=== PATIENT | female | born 1990 | race Caucasian/White ===

== ENCOUNTER 2021-11-30 17:11 | Day surgery (SDC) | payer BC ==
[2021-11-30 18:32] VITALS: BMI 26.2
[2021-11-30 18:50] LABS: Fetal Membranes Rupture No Membranes Rupture (No Rupture)
[2021-11-30] MEDS ORDERED: hydrALAZINE 20 MG/ML VIAL SLOW IVP PRN (19:15)
== END 2021-11-30 20:05 | disposition home or self-care (01) ==
LOC: CSHLD/OP 17:11
PROVIDERS: ATTEND Obstetrics & Gynecology
DX: O99.891 Other specified diseases and conditions complicating pregnancy (principal); N89.8 Other specified noninflammatory disorders of vagina; Z3A.36 36 weeks gestation of pregnancy; Z88.5 Allergy status to narcotic agent
CPT/HCPCS: 84112; 87480; 87510; 87660; 99285

== ENCOUNTER 2021-12-05 01:27 | Day surgery (SDC) | payer BC ==
[2021-12-05 01:57] VITALS: BMI 26.6
[2021-12-05] MEDS ORDERED: hydrALAZINE 20 MG/ML VIAL SLOW IVP PRN (02:49)
[2021-12-05] MEDS ORDERED: Promethazine HCl 25 MG/ML VIAL IM PRN (02:53)
[2021-12-05] MEDS ORDERED: Lactated Ringer's 1,000 ML IV SCH (03:00)
[2021-12-05] MEDS ORDERED: Fentanyl 100 MCG/2 ML VIAL SLOW IVP PRN (04:19)
== END 2021-12-05 10:37 | disposition home health service (06) ==
LOC: CSHLD/OP 01:27
PROVIDERS: ATTEND Obstetrics & Gynecology
DX: O47.03 False labor before 37 completed weeks of gestation, third trimester (principal); O98.513 Other viral diseases complicating pregnancy, third trimester; B00.9 Herpesviral infection, unspecified; Z3A.36 36 weeks gestation of pregnancy; Z79.899 Other long term (current) drug therapy; Z88.5 Allergy status to narcotic agent
CPT/HCPCS: J2550; J3010

== ENCOUNTER 2021-12-06 20:00 | Inpatient (IN) | payer BC, SELFPAY ==
[2021-12-06 20:38] VITALS: BMI 26.6
[2021-12-06] MEDS ORDERED: hydrALAZINE 20 MG/ML VIAL SLOW IVP PRN (20:56)
[2021-12-06] MEDS ORDERED: Promethazine HCl 25 MG/ML VIAL IM SCH (21:00)
[2021-12-06] MEDS: Fentanyl 100 MCG/2 ML VIAL SLOW IVP SCH ×4 (21:18→22:52)
[2021-12-07] MEDS: Fentanyl 100 MCG/2 ML VIAL SLOW IVP SCH ×2 (00:10→20:53)
[2021-12-07] MEDS ORDERED: Promethazine HCl 25 MG/ML VIAL IM PRN ×4 (00:57→20:59)
[2021-12-07] MEDS ORDERED: Zolpidem Tartrate 5 MG TAB PO PRN ×3 (00:57→20:59)
[2021-12-07] MEDS ORDERED: Ondansetron PF 4 MG/2 ML Vial IVP PRN ×4 (00:57→20:59)
[2021-12-07] MEDS ORDERED: Lidocaine 1% (PF) 30 ML VIAL SC PRN (00:57)
[2021-12-07] MEDS ORDERED: hydrALAZINE 20 MG/ML VIAL SLOW IVP PRN ×2 (00:57→20:59)
[2021-12-07 01:42] LABS: Hemoglobin 11.7 g/dL (12.0-15.5); Mean Corpuscular HGB CONC 31.7 g/dL (32.0-36.0); Mean Corpuscular Hemoglobin 29.3 pg (27.0-33.0); Mean Corpuscular Volume 92.5 fl (81.6-98.3); Mean Platelet Volume 10.2 fl (7.4-10.4); Platelet Count 459 10x3/uL (150-450); RBC Distribution Width 13.3 % (11.5-14.5); Red Blood Cell (RBC) Count 3.99 10x6/uL (3.90-5.03); White Blood Cell (WBC) Count 14.8 10x3/uL (3.5-10.5)
[2021-12-07] MEDS ORDERED: Lactated Ringer's 1,000 ML IV SCH (02:00)
[2021-12-07] MEDS ORDERED: NS w/ Oxytocin 30 units 500 ML IV SCH (02:00)
[2021-12-07] MEDS ORDERED: Fentanyl 2 mcg/Bup 0.1% Cadd 100 ML ONE ×2 (02:08→08:42)
[2021-12-07 02:10] LABS: Syphilis Antibody Nonreactive (Nonreactive); Syphilis Antibody Index 0.04 S/CO (<1.00 Non-Reactive)
[2021-12-07 02:16] LABS: Hep B Surf Ag Non-Reactive S/CO (NonReactive)
[2021-12-07] MEDS ORDERED: Hydrocerin (Eucerin) Cream 120 gm Jar TOP PRN (02:23)
[2021-12-07] MEDS ORDERED: Lactated Ringer's 500 ML IV PRN (02:23)
[2021-12-07] MEDS ORDERED: Naloxone HCl 0.4 mg/ml Vial IVP PRN ×2 (02:23)
[2021-12-07] MEDS ORDERED: ePHEDrine Sulfate 50 MG/10 ML VIAL SLOW IVP PRN (02:23)
[2021-12-07] MEDS ORDERED: diphenhydrAMINE 50 MG/ML VIAL IVP PRN ×2 (02:23→16:01)
[2021-12-07] MEDS ORDERED: Communication Order-Pharmacy FS SCH (02:30)
[2021-12-07] MEDS ORDERED: Fentanyl 2 mcg/Bupivacaine 0.1% Cassette 100 ML EPIDURAL SCH (02:30)
[2021-12-07 02:45] LABS: SARS-CoV-2 NAA Rapid Test Not Detected (NotDetected)
[2021-12-07] MEDS ORDERED: Bupivacaine 0.25% HCL 30 ML VIAL ONE ×2 (06:00→08:00)
[2021-12-07] MEDS ORDERED: ePHEDrine Sulfate 50 MG/10 ML VIAL ONE (08:00)
[2021-12-07] MEDS ORDERED: NS w/ Oxytocin 30 units 500 ML ONE (08:04)
[2021-12-07] MEDS ORDERED: Lidocaine 2% PF 100 mg/5 ml Syringe ONE ×3 (12:08→13:27)
[2021-12-07] MEDS ORDERED: Vecuronium 10 MG VIAL ONE (13:25)
[2021-12-07] MEDS ORDERED: Bicitra 30 ML UDCUP PO PRN (14:29)
[2021-12-07] MEDS ORDERED: Famotidine/PF 20 mg/2ml Vial SLOW IVP PRN (14:29)
[2021-12-07] MEDS ORDERED: ceFAZolin 2 GM/Dextrose 50 ML 2 GM in Premix Bag 1 BAG IVPB SCH (14:30)
[2021-12-07] MEDS ORDERED: Azithromycin 500 MG in Sodium Chloride 0.9% 250 ML 250 ML IVPB SCH (14:30)
[2021-12-07] MEDS ORDERED: PROPOFOL 20 ML ONE (14:38)
[2021-12-07] MEDS ORDERED: Oxytocin 10 UNITS/ML VIAL ONE ×2 (14:38→15:29)
[2021-12-07] MEDS ORDERED: Dexamethasone 4 mg/ml Vial ONE (14:38)
[2021-12-07] MEDS ORDERED: Phenylephrine 10 MG/ML VIAL ONE (14:38)
[2021-12-07] MEDS ORDERED: Succinylcholine 200 MG/10 ml SYRINGE FS ONE (14:38)
[2021-12-07] MEDS ORDERED: Ondansetron PF 4 MG/2 ML Vial ONE (14:38)
[2021-12-07] MEDS ORDERED: PHENYLEPHRINE-NS 100 MCG/ML 10 ML SYRINGE ONE (14:38)
[2021-12-07] MEDS ORDERED: Fentanyl 100 MCG/2 ML VIAL ONE ×2 (14:38→15:28)
[2021-12-07 15:18] LABS: RapidComm Collect By NURSE
[2021-12-07 15:19] LABS: RapidComm Collect By NURSE; pH (Cord, venous) 7.336 (7.250-7.350)
[2021-12-07] MEDS ORDERED: Midazolam HCl 2 mg/2 ml Vial ONE (15:28)
[2021-12-07] MEDS ORDERED: diphenhydrAMINE 25 MG CAP PO PRN ×2 (16:01→20:59)
[2021-12-07] MEDS ORDERED: Ondansetron HCl/PF 4 MG/2 ML Vial IVP PRN (16:01)
[2021-12-07] MEDS ORDERED: diphenhydrAMINE 50 MG/ML VIAL IM PRN (16:01)
[2021-12-07] MEDS ORDERED: Meperidine HCl/PF 25 MG/ML VIAL SLOW IVP PRN (16:01)
[2021-12-07] MEDS ORDERED: Naloxone HCl 0.4 mg/ml Vial IV PRN (16:01)
[2021-12-07] MEDS ORDERED: fentaNYL Citrate/PF 2,000 MCG in Sodium Chloride 0.9% 60 ML IV PRN (16:01)
[2021-12-07] MEDS ORDERED: Communication Order-Pharmacy FS PRN (16:15)
[2021-12-07] MEDS ORDERED: Sterile Water 10 ML ONE (16:59)
[2021-12-07] MEDS ORDERED: Azithromycin 500 MG VIAL ONE (17:00)
[2021-12-07] MEDS: fentaNYL Citrate/PF 1,000 MCG in Sodium Chloride 0.9% 30 ML IV PRN (17:29)
[2021-12-07] MEDS: Lactated Ringer's 1,000 ML IV SCH (20:53)
[2021-12-07] MEDS ORDERED: Boostrix 0.5 ML (Tdap) VIAL IM ONE (20:59)
[2021-12-07] MEDS ORDERED: Lanolin Ointment 7 GM TUBE TOP PRN (20:59)
[2021-12-08 06:50] LABS: Hemoglobin 8.4 g/dL (12.0-15.5); Mean Corpuscular HGB CONC 32.1 g/dL (32.0-36.0); Mean Corpuscular Hemoglobin 29.6 pg (27.0-33.0); Mean Corpuscular Volume 92.3 fl (81.6-98.3); Mean Platelet Volume 10.3 fl (7.4-10.4); Platelet Count 343 10x3/uL (150-450); RBC Distribution Width 13.2 % (11.5-14.5); Red Blood Cell (RBC) Count 2.84 10x6/uL (3.90-5.03); White Blood Cell (WBC) Count 20.5 10x3/uL (3.5-10.5)
[2021-12-08] MEDS: fentaNYL Citrate/PF 1,000 MCG in Sodium Chloride 0.9% 30 ML IV PRN (08:27)
[2021-12-08] MEDS: Ibuprofen 800 MG TAB PO PRN ×2 (09:49→19:09)
[2021-12-08] MEDS: Prenatal Vitamin 1 TAB PO SCH (09:49)
[2021-12-08] MEDS: Ferrous Sulfate 325 MG TAB PO SCH (14:27)
[2021-12-08] MEDS: Simethicone Chewable 80 MG TAB PO PRN (19:09)
[2021-12-09] MEDS: Ferrous Sulfate 325 MG TAB PO SCH ×2 (06:01→13:19)
[2021-12-09] MEDS: Prenatal Vitamin 1 TAB PO SCH (08:57)
[2021-12-09] MEDS: Ibuprofen 800 MG TAB PO PRN (11:42)
[2021-12-09] MEDS ORDERED: Fentanyl 100 MCG/2 ML VIAL SLOW IVP PRN (15:24)
[2021-12-09] MEDS: Ketorolac Tromethamine 30 MG/ML VIAL IVP PRN (18:07)
[2021-12-09] MEDS: Simethicone Chewable 80 MG TAB PO PRN (18:07)
[2021-12-10] MEDS: Ferrous Sulfate 325 MG TAB PO SCH (00:08)
[2021-12-10] MEDS: Ketorolac Tromethamine 30 MG/ML VIAL IVP PRN (01:13)
[2021-12-10] MEDS ORDERED: Ibuprofen 800 MG TAB PO PRN (07:57)
[2021-12-10 08:06] VITALS: BP 115/65; TEMP 98.3
[2021-12-10] MEDS: Prenatal Vitamin 1 TAB PO SCH (08:26)
== END 2021-12-10 13:40 | disposition home or self-care (01) | DRG 787 ==
LOC: CSHLD/OP 20:00 → CSHLD 12-07 01:06 → CSHPP 12-07 20:46
PROVIDERS: ADMIT Obstetrics & Gynecology; ATTEND Obstetrics & Gynecology
PROC: 10D00Z1 Extraction of Products of Conception, Low, Open Approach (ICD-10-PCS; principal; 2021-12-07)
DX: O98.32 Other infections with a predominantly sexual mode of transmission complicating childbirth (principal); D62 Acute posthemorrhagic anemia; O77.0 Labor and delivery complicated by meconium in amniotic fluid; O64.0XX0 Obstructed labor due to incomplete rotation of fetal head, not applicable or unspecified; O65.8 Obstructed labor due to other maternal pelvic abnormalities; Z3A.37 37 weeks gestation of pregnancy; Z37.0 Single live birth; O76 Abnormality in fetal heart rate and rhythm complicating labor and delivery; O90.81 Anemia of the puerperium; O32.4XX0 Maternal care for high head at term, not applicable or unspecified; A60.00 Herpesviral infection of urogenital system, unspecified; Z20.822 Contact with and (suspected) exposure to COVID-19; Z88.5 Allergy status to narcotic agent; O75.81 Maternal exhaustion complicating labor and delivery
CPT/HCPCS: 36415; 51702; 82805; 85027; 86780; 86850; 86900; 86901; 87340; 99285; J0456; J1100; J1885; J2001; J2250; J2370; J2405; J2550; J2590; J2704; J3010; J3490; S0020; U0002

== ENCOUNTER 2022-02-18 10:08 | Day surgery (SDC) | payer BC ==
[2022-02-15 15:44] VITALS: BMI 23.1
[2022-02-16 11:48] LABS: Hemoglobin 11.3 g/dL (12.0-15.5); Mean Corpuscular HGB CONC 30.4 g/dL (32.0-36.0); Mean Corpuscular Hemoglobin 25.6 pg (27.0-33.0); Mean Corpuscular Volume 84.2 fl (81.6-98.3); Mean Platelet Volume 9.5 fl (7.4-10.4); Platelet Count 636 10x3/uL (150-450); RBC Distribution Width 14.6 % (11.5-14.5); Red Blood Cell (RBC) Count 4.42 10x6/uL (3.90-5.03); White Blood Cell (WBC) Count 5.1 10x3/uL (3.5-10.5)
[2022-02-16 12:02] LABS: BHCG - Serum Negative (NEGATIVE); Pregs Control Background? CLEAR/WHITE (CLR/WHITE); Pregs Control Bar Appear? YES (CONTROL BAR)
[2022-02-16 17:41] LABS: SARS-CoV-2 PCR by NAA Not Detected (NotDetected)
[2022-02-18] MEDS ORDERED: Gabapentin 300 MG CAP ONE (10:23)
[2022-02-18] MEDS ORDERED: Famotidine/PF 20 mg/2ml Vial ONE (10:24)
[2022-02-18] MEDS ORDERED: CeleCOXIB 100 MG CAP ONE (10:24)
[2022-02-18] MEDS ORDERED: Lidocaine 1% MPF 2 ML VIAL ONE (10:24)
[2022-02-18] MEDS ORDERED: Ondansetron PF 4 MG/2 ML Vial ONE (11:47)
[2022-02-18] MEDS ORDERED: Fentanyl 100 MCG/2 ML VIAL ONE (11:47)
[2022-02-18] MEDS ORDERED: PROPOFOL 20 ML ONE (11:47)
[2022-02-18] MEDS ORDERED: Glycopyrrolate 0.2 MG/ML 5 ML SYRINGE ONE (11:47)
[2022-02-18] MEDS ORDERED: Rocuronium Bromide 10 MG/ML (10ML VIAL) ONE (11:47)
[2022-02-18] MEDS ORDERED: Dexamethasone 4 mg/ml Vial ONE ×2 (11:47→12:55)
[2022-02-18] MEDS ORDERED: Lidocaine 2% PF 5 ML VIAL ONE (11:48)
[2022-02-18] MEDS ORDERED: Ketorolac Tromethamine 30 MG/ML VIAL ONE (11:48)
[2022-02-18] MEDS ORDERED: Bupivacaine PF 0.5% 30 ML VIAL ONE (11:49)
[2022-02-18] MEDS ORDERED: EPINEPHrine 1 MG/ML AMP ONE (11:49)
[2022-02-18] MEDS ORDERED: HYDROmorphone 0.5 MG/0.5 ML SYRINGE ONE (11:52)
[2022-02-18] MEDS ORDERED: Dexmedetomidine 200 MCG/2 ML VIAL ONE (11:54)
[2022-02-18] MEDS ORDERED: ceFAZolin 2 GM/Dextrose 50 ML IVPB ONE (11:54)
[2022-02-18] MEDS ORDERED: Midazolam HCl 2 mg/2 ml Vial ONE (11:57)
[2022-02-18] MEDS ORDERED: ePHEDrine Sulfate 50 MG/10 ML VIAL ONE (12:33)
== END 2022-02-18 15:20 | disposition home or self-care (01) ==
LOC: CSHSDC 10:08
PROVIDERS: ATTEND Obstetrics & Gynecology
PROC: 0UT74ZZ Resection of Bilateral Fallopian Tubes, Percutaneous Endoscopic Approach (ICD-10-PCS; principal; 2022-02-18)
DX: Z40.03 Encounter for prophylactic removal of fallopian tube(s) (principal); N73.6 Female pelvic peritoneal adhesions (postinfective); J45.909 Unspecified asthma, uncomplicated; G43.909 Migraine, unspecified, not intractable, without status migrainosus; K21.9 Gastro-esophageal reflux disease without esophagitis; Z80.3 Family history of malignant neoplasm of breast; Z79.899 Other long term (current) drug therapy; Z88.5 Allergy status to narcotic agent; Z20.822 Contact with and (suspected) exposure to COVID-19
CPT/HCPCS: 84703; 85027; 86850; 86900; 86901; 88302; J0171; J0690; J1100; J1170; J1885; J2001; J2250; J2405; J2704; J3010; S0020; S0028; U0003; U0005

== ENCOUNTER 2024-12-19 10:41 | Emergency (ER) | payer BC, SELFPAY ==
[2024-12-19 11:43] LABS: #Basophils 0.04 10x3/uL (0.0-0.2); #Eosinophils 0.14 10x3/uL (0.0-0.5); #Monocytes 0.44 10x3/uL (0.0-1.1); #Neutrophils 3.14 10x3/uL (1.5-8.4); %Basophils 0.7 % (0.0-2.0); %Eosinophils 2.5 % (0.0-6.0); %Lymphocytes 31.8 % (18.0-47.0); %Neutrophils 56.8 % (40.0-75.0); Hematocrit 35.1 % (34.9-44.5); Hemoglobin 11.2 g/dL (12.0-15.5); Mean Corpuscular HGB CONC 31.9 g/dL (32.0-36.0); Mean Corpuscular Hemoglobin 27.9 pg (27.0-33.0); Mean Corpuscular Volume 87.3 fL (81.6-98.3); Mean Platelet Volume 9.7 fL (7.4-10.4); Platelet Count 457 10x3/uL (150-450); RBC Distribution Width 13.9 % (11.5-14.5); Red Blood Cell (RBC) Count 4.02 10x6/uL (3.90-5.03); White Blood Cell (WBC) Count 5.53 10x3/uL (3.5-10.5)
[2024-12-19 11:52] LABS: BHCG - Serum Negative (NEGATIVE); Pregs Control Background? CLEAR/WHITE (CLR/WHITE); Pregs Control Bar Appear? YES (CONTROL BAR)
[2024-12-19 12:02] LABS: ALT (SGPT) 11 U/L (Less than 34); AST (SGOT) 14 U/L (11-34); Albumin 3.9 g/dL (3.1-4.5); Alkaline Phosphatase 60 U/L (40-110); Anion Gap 11 mmol/L (10-20); BUN (Urea Nitrogen) 8 mg/dL (7.0-18.7); Bilirubin, Total 0.9 mg/dL (0.3-1.2); Calc. Creatinine Clearance 0 mL/min (70-130); Calcium 9.3 mg/dL (7.8-10.44); Carbon Dioxide 23 mmol/L (22-29); Chloride 109 mmol/L (98-107); Estimated GFR 104; Globulin 2.8 g/dL (2.4-3.5); Glucose 106 mg/dL (70-105); Lipase 17 U/L (8-78); Potassium 4.3 mmol/L (3.5-5.1); Protein, Total 6.7 g/dL (6.0-8.3); Sodium 139 mmol/L (136-145)
[2024-12-19 12:03] LABS: Troponin I Less than 0.010 ng/mL (< 0.028)
== END 2024-12-19 12:45 | disposition home or self-care (01) ==
LOC: CSHERS 10:41
DX: R07.9 Chest pain, unspecified (principal)
CPT/HCPCS: 36415; 71045; 80053; 83690; 84484; 84703; 85025; 93005